=== PATIENT | male | born 1950 | race Caucasian/White ===

== ENCOUNTER 2020-02-28 22:38 | Inpatient (IN) | payer OTHER, MEDICARE ==
[~2020-02-28] VITALS: Ht 175.3 cm; Wt 55.9 kg
[2020-02-28 22:50] VITALS: Ht 175.3 cm; Wt 55.9 kg
[2020-02-29 11:27] LABS: BASOPHIL % 0.4 % (0-2); PLATELET COUNT 168 x10^3mcL (130-400)
[2020-02-29 11:35] LABS: CALCIUM 8.5 mg/dL (8.5-10.1); CARBON DIOXIDE 25.5 mmol/L (21-32); CHLORIDE SERUM 107 mmol/L (98-107); GFR1 > 60 mL/min; GLUCOSE SERUM 121 mg/dL (74-106); POTASSIUM SERUM 4.1 mmol/L (3.5-5.1); SODIUM SERUM 141 mmol/L (136-145)
[2020-02-29 11:39] LABS: ALBUMIN 3.5 g/dL (3.4-5.0); ALKALINE PHOSPHATASE 76 U/L (46-116); ALT/SGPT 15 U/L (16-63); AST/SGOT 11 U/L (15-37); BILIRUBIN TOTAL 0.41 mg/dL (0.20-1.00); TOTAL PROTEIN, SERUM 6.4 g/dL (6.4-8.2)
[2020-02-29 11:42] LABS: RED CELL DISTRIBUTION WIDTH 15.3 % (11.5-14.5)
[2020-02-29 14:04] VITALS: BP 148/66
[2020-02-29 20:15] VITALS: BP 116/66
[2020-03-01 04:55] VITALS: BP 120/63
[2020-03-01 06:40] LABS: BASOPHIL % 0.2 % (0-2); PLATELET COUNT 162 x10^3mcL (130-400)
[2020-03-01 06:55] LABS: CALCIUM 8.3 mg/dL (8.5-10.1); CARBON DIOXIDE 27.3 mmol/L (21-32); CHLORIDE SERUM 107 mmol/L (98-107); CREATININE SERUM 1.2 mg/dL (0.7-1.3); GFR1 > 60 mL/min; GLUCOSE SERUM 92 mg/dL (74-106); MAGNESIUM 2.1 mg/dL (1.8-2.4); PHOSPHOROUS 3.9 mg/dL (2.5-4.9); POTASSIUM SERUM 4.8 mmol/L (3.5-5.1); SODIUM SERUM 140 mmol/L (136-145)
[2020-03-01 07:21] LABS: RED CELL DISTRIBUTION WIDTH 15.1 % (11.5-14.5)
[2020-03-01 08:37] VITALS: BP 137/56
[2020-03-01 13:27] VITALS: BP 128/63
[2020-03-01 16:56] VITALS: BP 117/44
[2020-03-01 21:25] VITALS: BP 118/54
[2020-03-02 05:59] VITALS: BP 127/68
[2020-03-02 08:52] VITALS: BP 133/68
[2020-03-02 09:09] LABS: CALCIUM 9.1 mg/dL (8.5-10.1); CHLORIDE SERUM 105 mmol/L (98-107); CREATININE SERUM 0.9 mg/dL (0.7-1.3); GFR1 > 60 mL/min; GLUCOSE SERUM 90 mg/dL (74-106); MAGNESIUM 2.2 mg/dL (1.8-2.4); POTASSIUM SERUM 4.5 mmol/L (3.5-5.1); SODIUM SERUM 138 mmol/L (136-145)
[2020-03-02 09:53] LABS: BASOPHIL % 0.5 % (0-2); PLATELET COUNT 174 x10^3mcL (130-400)
[2020-03-02 11:59] VITALS: BP 137/57
[2020-03-02 16:59] VITALS: BP 133/59
[2020-03-02 21:29] VITALS: BP 132/41
[2020-03-03 05:28] VITALS: BP 131/47
[2020-03-03 06:02] LABS: microscopic required? NO
[2020-03-03 06:17] LABS: UA SPECIFIC GRAVITY 1.025 (1.005-1.035); urine erythrocyte NEGATIVE (NEGATIVE)
[2020-03-03 08:59] VITALS: BP 132/41
[2020-03-03 13:03] VITALS: BP 126/52
[2020-03-03 17:42] VITALS: BP 116/61
[2020-03-03 21:08] VITALS: BP 125/57
[2020-03-04 05:59] VITALS: BP 126/63
[2020-03-04 08:21] VITALS: BP 139/57
[2020-03-04 12:16] VITALS: BP 137/59
[2020-03-04] MEDS ORDERED: ACETAMINOPHEN650 M6 PO (14:17)
[2020-03-04] MEDS ORDERED: ALBUTEROL S5 MG/1 ML HHN (14:19)
[2020-03-04] MEDS ORDERED: AMLODIPINE BESYL5 M2 PO (14:20)
[2020-03-04] MEDS ORDERED: NATURE'S BLEND500 MG PO (14:20)
[2020-03-04] MEDS ORDERED: DOCUSATE100 M1 PO (14:21)
[2020-03-04] MEDS ORDERED: D3-50001 TAB PO (14:21)
[2020-03-04] MEDS ORDERED: HYDRALAZINE HCL25 MG PO (14:22)
[2020-03-04] MEDS ORDERED: NATURE'S BLEND F1 MG PO (14:22)
[2020-03-04] MEDS ORDERED: ZESTRIL20 MG PO (14:24)
[2020-03-04] MEDS ORDERED: IPRATROPIUM BROM3 M2 HHN (14:24)
[2020-03-04] MEDS ORDERED: METOPROLOL TAR100 MG PO (14:25)
[2020-03-04 16:46] VITALS: BP 134/42
[2020-03-04 16:53] VITALS: BP 134/42
[2020-03-04 19:20] VITALS: BP 117/53
== END 2020-03-04 20:45 | DRG 422 ==
LOC: ED 22:38 → MU 02-29 12:31
PROVIDERS: Emergency Medicine; ADMIT Internal Medicine; ATTEND Internal Medicine
DX: E86.0 Dehydration (principal); N17.0 Acute kidney failure with tubular necrosis; I50.9 Heart failure, unspecified; F31.9 Bipolar disorder, unspecified; M25.512 Pain in left shoulder; F41.9 Anxiety disorder, unspecified; Z20.828 Contact with and (suspected) exposure to other viral communicable diseases; K21.9 Gastro-esophageal reflux disease without esophagitis
CPT/HCPCS: 97116-GP; 97530-GP; G0378; J7030; Q0092; U0003-CS